=== PATIENT | male | born 1940 | race Hispanic/Latino ===

== ENCOUNTER 2018-10-17 08:43 | Day surgery (SDC) | payer OTHER ==
[2018-10-17] MEDS ORDERED: TETRACAINE HCL 0.5% 2ML OPTH ONE (09:30)
[2018-10-17] MEDS ORDERED: BALANCED SALT IRRIG PLAIN 500 ML BTL IRR ONE (09:30)
[2018-10-17] MEDS ORDERED: NS 0.9% VIAL 10 ML ONE (09:30)
[2018-10-17] MEDS ORDERED: BUPIVACAINE 0.25% PF 10 ML VIAL ONE (09:30)
[2018-10-17] MEDS ORDERED: CYCLOPENTOLATE 1% OPTH 2 ML ONE (09:30)
[2018-10-17] MEDS ORDERED: DUOVISC 1 KIT OPTH ONE ×2 (09:30→12:30)
[2018-10-17] MEDS ORDERED: MOXIFLOXACIN HCL 10 DROPS/ML **OR USE OPTH ONE (09:30)
[2018-10-17] MEDS ORDERED: EPINEPHRINE/PF 1 MG/ML AMP ONE ×2 (09:30→10:28)
[2018-10-17] MEDS ORDERED: LIDOCAINE 2% MPF 5 ML VIAL ONE ×2 (09:30→11:09)
[2018-10-17] MEDS ORDERED: PHENYLEPHRINE 10% OPTH 5ML ONE (09:31)
[2018-10-17] MEDS ORDERED: PHENYLEPHRINE 10% OPTH 5ML OPTH ONE ×2 (09:35→09:40)
[2018-10-17] MEDS ORDERED: CYCLOPENTOLATE 1% OPTH 2 ML OPTH ONE ×2 (09:35→09:40)
[2018-10-17] MEDS: NA CHLORIDE 0.9% 500 ML ONE ×2 (09:36→10:50)
[2018-10-17] MEDS ORDERED: PROPOFOL 200 MG/20 ML VIAL IV ONE (11:09)
--- NOTE | 2018-10-17 12:16 | P.BOP ---
Preoperative diagnosis: Nuclear sclerotic and posterior subcapsular cataract OS Postoperative diagnosis: Same and floppy iris OS Primary procedure: Phacoemulsification with IOL complex with iris retractors OS Estimated blood loss: None Anesthesia: Local (Subtenon's infusion with anesthesia for cataract surgery) Complications: None Implants: SA60WF +28.5 Transferred to: Other (Day surgery) Condition: Good
[2018-10-17 12:26] VITALS: BP 145/64; TEMP 97.1; O2SAT 96
--- NOTE | 2018-10-17 21:08 | OP ---
Surgeon: Angie Blackburn MD Anesthesiologist: 1. Cate Nichole CRNA. 2. Quincy Gallegos CRNA. 3. Adriano Patton M.D. Preoperative Diagnosis: Nuclear sclerotic and posterior subcapsular cataract, OS (left eye). Postoperative Diagnoses: 1. Nuclear sclerotic and posterior subcapsular cataract, OS (left eye). 2. Floppy iris. Operation Performed: Phacoemulsification with intraocular lens implant left eye complex with the use of iris retractors. Anesthesia: Per cataract surgery. Complications: None. Description Of The Procedure: In day surgery, the patient was prepped with Betadine and draped. A lid speculum was placed in the left eye. A conjunctival incision was made in the inferior nasal quadrant with Alphonse scissors. A 1:1 mixture of 2% Xylocaine and 0.25% bupivacaine was placed around the globe. Approximately 5 mL were used. A [place] balloon was placed on the eye for approximately 5 minutes. The patient was brought into the operative room. The patient was prepped and draped in the usual sterile fashion for ophthalmic surgery. A lid speculum was placed in the eye. Paracentesis were made superiorly and inferiorly in the limbal cornea. Viscoat was placed in the anterior chamber. A crescent blade was used to create a tunnel incision in the temporal cornea and a keratome was used to enter the anterior chamber. Provisc was placed in the eye and 360 degree capsulotomy was performed. The lens was hydrodissected with balanced salt solution and moved freely. The iris became floppy during phacoemulsification, and the iris extended through the superior paracentesis and the lens appeared slightly loose. Five additional paracentesis sites were created with one at the wound, one 180 degrees from the wound, and three in the superior and inferior quadrants ; through these, 5 iris retractors were placed to stabilize the lens and iris. The lens was removed in a stop and chop fashion. An 8.09 CDE was required. Irrigation and aspiration was used to remove residual cortex. Provisc was placed in the eye. A SA60WF +28.5 diopter lens was placed in the capsular bag without complications. The iris retractors were removed. Irrigation and aspiration was used to remove residual viscoelastic. The paracentesis sites were hydrated with balanced salt solution and the wound and paracentesis sites were inspected and found to be watertight. Intracameral Vigamox 0.07 cc was injected at the end of the procedure. The eye was irrigated with balanced salt solution. The eye was patched with a soft cotton patch and [place] metal shield. The patient was returned to day surgery in good condition. Comments: During bimanual I and A when the anterior capsule was polished, the lens did not appear unstable. No CTR was placed. Discharge Instructions: Mr. Ash is discharged to home in good condition and is to follow up with Dr. Blackburn in the morning. FE/FRANCISCO Voice ID: [id number] Report ID: [id number]
== END 2018-10-17 12:49 | disposition home or self-care (01) ==
LOC: OR 08:43
PROVIDERS: ATTEND Ophthalmology Retina Specialist
PROC: 08RK3JZ Replacement of Left Lens with Synthetic Substitute, Percutaneous Approach (ICD-10-PCS; principal; 2018-10-17 10:15)
DX: H25.12 Age-related nuclear cataract, left eye (principal); H25.042 Posterior subcapsular polar age-related cataract, left eye; H21.81 Floppy iris syndrome; Z88.6 Allergy status to analgesic agent; Z80.9 Family history of malignant neoplasm, unspecified; Z83.3 Family history of diabetes mellitus
CPT/HCPCS: 66982; J2704; J0171 ×2